=== PATIENT | male | born 1970 ===

== ENCOUNTER 2017-09-24 03:51 | Emergency (ER) | payer MEDICAID ==
[2017-09-24 04:25] VITALS: BP 117/52; PULSE 108; RESP 20; O2SAT 95
--- NOTE | 2017-09-24 05:08 | ED PDOC ---
HPI: Psych/Substance Abuse Time Seen by Provider: 09/24/17 04:12 Chief Complaint (Nursing): Alcohol Ingestion Chief Complaint (Provider): Alcohol Ingestion ED Caveat: Intoxicated History Per: Patient, EMS History/Exam Limitations: intoxication Current Symptoms Are (Timing): Still Present Modifying Factor(s): Alcohol Additional Complaint(s): 46 year old male arrives to ED via EMS for an evaluation of suspected alcohol intoxication prior to arrival. Patient admits to drinking tonight but offers no complaints. Past Medical History Reviewed: Historical Data, Nursing Documentation, Vital Signs Vital Signs: Last Vital Signs Temp Pulse 108 H 09/24/17 04:13 Resp 20 09/24/17 04:13 BP 117/52 L 09/24/17 04:13 Pulse Ox 95 09/24/17 04:13 - Medical History PMH: Back Problems (sciatica) - Surgical History Surgical History: No Surg Hx - Family History Family History: States: Unknown Family Hx - Allergies Allergies/Adverse Reactions: Allergies Allergy/AdvReac Type Severity Reaction Status Date / Time No Known Allergies Allergy Verified 09/24/17 04:07 Review of Systems Review Of Systems: ROS cannot be obtained secondary to pt's inabilty to answer questions. Physical Exam - Reviewed Nursing Documentation Reviewed: Yes Vital Signs Reviewed: Yes - Physical Exam Appears: Positive for: Non-toxic, No Acute Distress Head Exam: Positive for: ATRAUMATIC, NORMAL INSPECTION, NORMOCEPHALIC Skin: Positive for: Normal Color Eye Exam: Positive for: Normal appearance, EOMI, PERRL ENT: Positive for: Normal ENT Inspection Neck: Positive for: Normal Cardiovascular/Chest: Positive for: Regular Rate, Rhythm Respiratory: Positive for: Normal Breath Sounds. Negative for: Respiratory Distress Gastrointestinal/Abdominal: Positive for: Normal Exam, Soft. Negative for: Tenderness Extremity: Positive for: Normal ROM (upper/lower) Neurologic/Psych: Positive for: Alert, Oriented, Gait (steady). Negative for: Motor/Sensory Deficits - ECG O2 Sat by Pulse Oximetry: 95 (RA) Pulse Ox Interpretation: Normal Medical Decision Making Medical Decision Making: Initial Impression: Alcohol intoxication Initial Plan: * Monitor for clinical sobriety Scribe Attestation: Documented by May Griffiths, acting as a scribe for Tio Foster MD. Provider Scribe Attestation: All medical record entries made by the Scribe were at my direction and personally dictated by me. I have reviewed the chart and agree that the record accurately reflects my personal performance of the history, physical exam, medical decision making, and the department course for this patient. I have also personally directed, reviewed, and agree with the discharge instructions and disposition. Disposition - Clinical Impression Clinical Impression: Alcohol abuse - Patient ED Disposition Is Patient to be Admitted: No Doctor Will See Patient In The: Office Counseled Patient/Family Regarding: Studies Performed, Diagnosis, Need For Followup - Disposition Disposition: Routine/Home Disposition Time: 06:28 Condition: GOOD Instructions: Alcohol Abuse and Alcoholism (DC) Forms: [facility] ED School/Work Excuse Print Language: YI
[2017-09-24 06:43] VITALS: TEMP 98.8
== END 2017-09-24 06:42 | disposition home or self-care (01) ==
LOC: H.ER 03:51
DX: F10.129 Alcohol abuse with intoxication, unspecified (principal)

== ENCOUNTER 2017-10-22 21:51 | Emergency (ER) | payer MEDICAID ==
[2017-10-22 21:58] VITALS: TEMP 98
--- NOTE | 2017-10-22 22:08 | ED PDOC ---
HPI: Psych/Substance Abuse Time Seen by Provider: 10/22/17 22:07 Chief Complaint (Nursing): Alcohol Ingestion Chief Complaint (Provider): alcohol ingestion History Per: Patient (47 y/o male here for evaluation of alcohol intoxication. Patient states he has h/o sleep apnea which is exacerbated during drinking. Denies any complaints.) Past Medical History Reviewed: Historical Data, Nursing Documentation, Vital Signs Vital Signs: Last Vital Signs Temp 98.0 F 10/22/17 21:55 Pulse 101 H 10/22/17 21:55 Resp 22 10/22/17 21:55 BP 134/87 10/22/17 21:55 Pulse Ox 90 L 10/22/17 21:55 - Medical History PMH: Back Problems (sciatica) - Family History Family History: States: Unknown Family Hx - Allergies Allergies/Adverse Reactions: Allergies Allergy/AdvReac Type Severity Reaction Status Date / Time No Known Allergies Allergy Verified 09/24/17 04:07 Review of Systems ROS Statement: Except As Marked, All Systems Reviewed And Found Negative Physical Exam - Reviewed Nursing Documentation Reviewed: Yes Vital Signs Reviewed: Yes (REPEAT PULSE OX 97% ROOM AIR) - Physical Exam Appears: Positive for: Well, Non-toxic, No Acute Distress Head Exam: Positive for: ATRAUMATIC, NORMAL INSPECTION, NORMOCEPHALIC Skin: Positive for: Normal Color, Warm, DRY Eye Exam: Positive for: EOMI, Normal appearance, PERRL ENT: Positive for: Normal ENT Inspection Neck: Positive for: Normal, Painless ROM Cardiovascular/Chest: Positive for: Regular Rate, Rhythm Respiratory: Positive for: CNT, Normal Breath Sounds Gastrointestinal/Abdominal: Positive for: Normal Exam, Soft Back: Positive for: Normal Inspection Extremity: Positive for: Normal ROM Neurologic/Psych: Positive for: Alert, Oriented - ECG O2 Sat by Pulse Oximetry: 90 - Progress ED Course And Treament: Patient's pulse ox noted 97% in ED. Daughter in ED to pick him up. Patient advised follow up with pmd for evaluation and management of sleep apnea. Disposition - Clinical Impression Clinical Impression: Alcohol ingestion - Patient ED Disposition Is Patient to be Admitted: No - Disposition Referrals: [facility] [Outside] Disposition: Routine/Home Disposition Time: 22:57 Condition: STABLE Instructions: Alcohol Poisoning (DC) Print Language: BENGAL[place]
[2017-10-22 22:58] VITALS: BP 132/79; PULSE 91; RESP 18
[2017-10-23 21:48] VITALS: O2SAT 90
== END 2017-10-22 22:58 | disposition home or self-care (01) ==
LOC: H.ER 21:51
DX: F10.10 Alcohol abuse, uncomplicated (principal)